=== PATIENT | female | born 1950 | race Caucasian/White ===

== ENCOUNTER 2022-08-25 12:22 | Emergency (ER) | payer MEDICARE ==
[2022-08-25] VITALS (12 sets, daily range): BP systolic 100–146; BP diastolic 54–82
[~2022-08-25] VITALS: Ht 162.6 cm; Wt 65.8 kg
[2022-08-25] MEDS ORDERED: GABAPENTIN100 MG PO (12:36)
[2022-08-25] MEDS ORDERED: OMEPRAZOLE20 MG PO (12:37)
[2022-08-25] MEDS ORDERED: SYNTHROID25 MCG PO (12:37)
[2022-08-25] MEDS ORDERED: PREMARIN0.3 MG PO (12:37)
[2022-08-25] MEDS ORDERED: WELCHOL625 MG PO (12:38)
[2022-08-25] MEDS ORDERED: ASPIRIN81 MG PO (12:38)
[2022-08-25 14:04] LABS: BASO% 0.1 % (0-3); HEMATOCRIT 43.8 % (37.0-47.0); HEMOGLOBIN 14.1 g/dl (12.0-16.0); IMMATURE GRANULOCYTES 0.2 % (0.0-5.0); LYMPH% 6.6 % (15-41); MEAN CELL VOLUME 98.9 fL CALC (80.0-100.0); MEAN CORPUSCULAR HGB 31.8 pG CALC (26.0-32.0); MEAN CORPUSCULAR HGB CONC 32.2 g/dL CAL (32.0-36.0); MONO% 3.7 % (2-13); NEUT# 13.45 thou/uL (2.00-7.15); NEUT% 89.4 % (42-76); RED BLOOD COUNT 4.43 mill/uL (4.20-5.60); RED CELL DISTRI WIDTH 13.4 % (11.5-15.5)
[2022-08-25 14:18] LABS: ALBUMIN 4.7 g/dL (3.2-5.0); ALKALINE PHOSPHATASE 47 u/l (38-126); ANION GAP 14 (6-22 (CALC)); BILIRUBIN, TOTAL 0.5 mg/dL (0.02-1.3); BUN 25 mg/dL (8-23); BUN/CREATININE RATIO 32 (12-20 (CALC)); CARBON DIOXIDE 23 mmol/l (22-30); CHLORIDE 105 mmol/l (95-108); CREATININE 0.8 mg/dL (0.5-1.0); GFR FOR AFR.AMER. > 60 ML/MIN (>=60 (CALC)); GFR OTHER RACES > 60 ML/MIN (>=60 (CALC)); LIPASE 51 u/l (23-300); POTASSIUM 3.8 mmol/l (3.5-5.1); SGOT/AST 35 u/l (9-36); SODIUM 139 mmol/l (137-146); TOTAL PROTEIN 7.5 g/dL (6.3-8.2)
[2022-08-25 19:14] LABS: URINE BILIRUBIN - DIPSTICK NEGATIVE (NEGATIVE); URINE BLOOD DIPSTICK NEGATIVE (NEGATIVE); URINE COLOR YELLOW; URINE GLUCOSE - DIPSTICK NEGATIVE (NEGATIVE); URINE KETONE TRACE mg/dL (NEGATIVE); URINE LEUK ESTERASE NEGATIVE (NEGATIVE); URINE NITRITE - DIPSTICK NEGATIVE (Negative); URINE PH 5.5 (4.5-8.0); URINE PROTEIN - DIPSTICK NEGATIVE (NEG-TRACE); URINE SPECIFIC GRAVITY >=1.030; URINE UROBILINOGEN - DIPSTICK 0.2 E.U./dL (0.2)
[2022-08-25] MEDS ORDERED: ZOFRAN4 MG/TAB PO (19:25)
== END 2022-08-25 20:28 | disposition home or self-care (01) ==
LOC: ED 12:22
PROVIDERS: Nurse Practitioner
DX: A08.11 Acute gastroenteropathy due to Norwalk agent (principal); Z85.038 Personal history of other malignant neoplasm of large intestine; Z92.21 Personal history of antineoplastic chemotherapy